=== PATIENT | male | born 1940 | race Caucasian/White ===

== ENCOUNTER 2018-10-29 11:35 | Inpatient (IN) ==
[2018-10-29] MEDS ORDERED: ASPIRIN 325 MG TABLET PO STA (12:14)
[2018-10-29 12:26] LABS: Basophils # 0.1 10*3/uL (0.0-0.2); Basophils % 0.6 % (0.0-0.8); Eosinophils # 0.1 10*3/uL (0.0-0.87); Eosinophils % 1.4 % (0.00-10.9); Hematocrit 47.5 VOL% (42.0-52.0); Hemoglobin 15.1 GM/DL (14.0-18.0); Immature Granulocytes % 0.8 %; Immature Granulocytes Absolute 0.07 #; Lymphocytes # 1.2 10*3/uL (1.4-4.0); Mean Corpuscular HGB Conc 31.8 GM/DL (32-36); Mean Corpuscular Volume 97.9 FL (87-102); Mean Platelet Volume 10.3 FL (9.6-12.0); Monocytes % 5.4 % (1.7-12.7); Neutrophils % 78.8 % (38.7-73.9); Platelet Count 216 T/CUMM (130-400); Red Blood Count 4.85 MC/CUMM (3.8-5.5); Red Cell Distribution Width 13.6 % (9.3-17.3); White Blood Count 9.3 T/CUMM (4-12)
[2018-10-29 12:32] LABS: INR 1.7; PT Patient Result 18.8 SECS
[2018-10-29 12:47] LABS: Calcium 10.2 MG/DL (8.5-10.1); Osmolality,Calculated 288.1 MOS/KG (273-304)
[2018-10-29] MEDS ORDERED: ENOXAPARIN 100 MG/ML SYRINGE SUBCUT STA ×2 (13:08→13:24)
[2018-10-29] MEDS ORDERED: ENOXAPARIN 100 MG/ML SYRINGE SUBCUT ONE (13:26)
[2018-10-29] MEDS ORDERED: ONDANSETRON 4 MG/2 ML VIAL IV PRN (14:08)
[2018-10-29] MEDS ORDERED: ZALEPLON 5 MG CAPSULE PO PRN (14:08)
[2018-10-29] MEDS ORDERED: ACETAMINOPHEN 325 MG TABLET PO PRN (14:08)
[2018-10-29] MEDS ORDERED: CLOPIDOGREL 300 MG TABLET PO ONE (14:13)
[2018-10-29] MEDS ORDERED: NITROGLYCERIN SL 0.4 MG TABLET SL PRN (14:14)
[2018-10-29] MEDS ORDERED: ENOXAPARIN 100 MG/ML SYRINGE SUBCUT SCH (14:30)
[2018-10-29] MEDS ORDERED: SODIUM CHLORIDE 0.9% 1,000 ML IV SCH (14:30)
[2018-10-29 16:18] LABS: Apearance,Urine CLEAR (Clear); Bilirubin,Urine Negative (Negative); Blood, Urine Small mg/dL (Negative); Glucose,Urine (UA) Negative (Negative); Hyaline Casts,Urine 3 /LPF (0-3); Ketones,Urine Negative (Negative); Mucus,Urine Occasional /LPF (Occasional); Nitrite,Urine Negative (Negative); Protein,Urine Negative; RBC,Urine <1 /HPF (0-4); Urine Color Straw (Yellow); Urine Urobilinogen < 2.0 EU/DL (0.2-1.0)
[2018-10-29] MEDS ORDERED: DIAZEPAM 5 MG TABLET PO ONE (17:19)
[2018-10-29] MEDS ORDERED: diphenhydrAMINE CAP 25 MG CAPSULE PO ONE (17:19)
[2018-10-29] MEDS ORDERED: LIDOCAINE 1% 20 ML VIAL ONE (18:47)
[2018-10-29] MEDS ORDERED: NITROGLYCERIN DRIP 50 MG/250 ML BOTTLE IV ONE (18:47)
[2018-10-29] MEDS ORDERED: HEPARIN/NACL 0.9% 2 UNITS/ML 1,000 ML IV ONE (18:47)
[2018-10-29] MEDS ORDERED: VERAPAMIL 5 MG/2 ML VIAL ONE (18:47)
[2018-10-29] MEDS ORDERED: MIDAZOLAM 2 MG/2 ML VIAL ONE (19:16)
[2018-10-29] MEDS ORDERED: fentaNYL 100 MCG/2 ML VIAL ONE (19:16)
[2018-10-29] MEDS ORDERED: ENOXAPARIN 60 MG/0.6 ML SYRINGE ONE (19:31)
[2018-10-29] MEDS ORDERED: HEPARIN/NACL 0.9% 2 UNITS/ML 500 ML IV ONE (20:15)
[2018-10-29] MEDS ORDERED: hydrALAZINE 20 MG/1 ML VIAL ONE (20:55)
[2018-10-29] MEDS ORDERED: TICAGRELOR 90 MG TABLET ONE (20:58)
[2018-10-29] MEDS: GABAPENTIN 300 MG CAPSULE PO SCH (22:35)
[2018-10-29] MEDS: ALLOPURINOL 100 MG TABLET PO SCH (22:36)
[2018-10-29] MEDS: LISINOPRIL 10 MG TABLET PO SCH (22:36)
[2018-10-29] MEDS: ATORVASTATIN 80 MG TABLET PO SCH (22:36)
[2018-10-30 05:05] LABS: Basophils # 0.1 10*3/uL (0.0-0.2); Basophils % 0.8 % (0.0-0.8); Eosinophils # 0.1 10*3/uL (0.0-0.87); Eosinophils % 0.7 % (0.00-10.9); Hematocrit 50.2 VOL% (42.0-52.0); Hemoglobin 15.5 GM/DL (14.0-18.0); Immature Granulocytes % 0.7 %; Immature Granulocytes Absolute 0.07 #; Lymphocytes # 1.3 10*3/uL (1.4-4.0); Lymphocytes % 13.3 % (21.2-54.2); Mean Corpuscular HGB Conc 30.9 GM/DL (32-36); Mean Platelet Volume 10.7 FL (9.6-12.0); Monocytes % 6.3 % (1.7-12.7); Neutrophils % 78.2 % (38.7-73.9); Platelet Count 195 T/CUMM (130-400); Red Blood Count 4.97 MC/CUMM (3.8-5.5); Red Cell Distribution Width 13.9 % (9.3-17.3); White Blood Count 9.8 T/CUMM (4-12)
[2018-10-30 05:21] LABS: Osmolality,Calculated 281.4 MOS/KG (273-304); Risk Ratio 5.69
[2018-10-30] MEDS: VITAMIN E 400 UNIT CAPSULE PO SCH (08:26)
[2018-10-30] MEDS: CYANOCOBALAMIN 500 MCG TABLET PO SCH (08:26)
[2018-10-30] MEDS: ALLOPURINOL 100 MG TABLET PO SCH ×2 (08:26→20:58)
[2018-10-30] MEDS: CARVEDILOL 6.25 MG TABLET PO SCH ×2 (08:26→20:58)
[2018-10-30] MEDS: CHOLECALCIFEROL 1,000 UNIT TABLET PO SCH (08:26)
[2018-10-30] MEDS: ASPIRIN EC 81 MG TABLET PO SCH (08:27)
[2018-10-30] MEDS: GABAPENTIN 300 MG CAPSULE PO SCH ×2 (08:27→20:59)
[2018-10-30] MEDS: PANTOPRAZOLE 40 MG TABLET PO SCH (08:27)
[2018-10-30] MEDS ORDERED: CLOPIDOGREL 75 MG TABLET PO SCH (09:00)
[2018-10-30] MEDS ORDERED: NON-FORMULARY MEDICATION (Omeprazole 20 MG) PO SCH (09:00)
[2018-10-30] MEDS ORDERED: DILTIAZEM CD 240 MG CAPSULE PO SCH (09:00)
[2018-10-30] MEDS: TICAGRELOR 90 MG TABLET PO SCH ×4 (12:25→21:04)
[2018-10-30] MEDS ORDERED: WARFARIN 5 MG TABLET PO SCH (18:00)
[2018-10-30] MEDS: LISINOPRIL 10 MG TABLET PO SCH (20:58)
[2018-10-30] MEDS: ATORVASTATIN 80 MG TABLET PO SCH (20:58)
[2018-10-31 05:22] LABS: Basophils # 0.1 10*3/uL (0.0-0.2); Basophils % 0.7 % (0.0-0.8); Eosinophils # 0.2 10*3/uL (0.0-0.87); Eosinophils % 2.3 % (0.00-10.9); Hematocrit 42.7 VOL% (42.0-52.0); Hemoglobin 14.1 GM/DL (14.0-18.0); Immature Granulocytes % 0.6 %; Immature Granulocytes Absolute 0.05 #; Lymphocytes # 1.5 10*3/uL (1.4-4.0); Lymphocytes % 17.8 % (21.2-54.2); Mean Corpuscular Volume 96.2 FL (87-102); Mean Platelet Volume 10.6 FL (9.6-12.0); Neutrophils % 67.6 % (38.7-73.9); Platelet Count 200 T/CUMM (130-400); Red Blood Count 4.44 MC/CUMM (3.8-5.5); Red Cell Distribution Width 13.7 % (9.3-17.3); White Blood Count 8.3 T/CUMM (4-12)
[2018-10-31 05:25] LABS: INR 1.7; PT Patient Result 18.1 SECS
[2018-10-31 05:51] LABS: Calcium 10.4 MG/DL (8.5-10.1); Osmolality,Calculated 283.3 MOS/KG (273-304)
[2018-10-31] MEDS: CHOLECALCIFEROL 1,000 UNIT TABLET PO SCH (08:46)
[2018-10-31] MEDS: PANTOPRAZOLE 40 MG TABLET PO SCH (08:47)
[2018-10-31] MEDS: CARVEDILOL 6.25 MG TABLET PO SCH (08:47)
[2018-10-31] MEDS: VITAMIN E 400 UNIT CAPSULE PO SCH (08:47)
[2018-10-31] MEDS: GABAPENTIN 300 MG CAPSULE PO SCH (08:47)
[2018-10-31] MEDS: CYANOCOBALAMIN 500 MCG TABLET PO SCH (08:47)
[2018-10-31] MEDS: ALLOPURINOL 100 MG TABLET PO SCH (08:48)
[2018-10-31] MEDS: ASPIRIN EC 81 MG TABLET PO SCH (08:48)
[2018-10-31] MEDS: TICAGRELOR 90 MG TABLET PO SCH ×2 (08:48→08:49)
[2018-10-31 12:29] VITALS: BP 124/70
[2018-10-31] MEDS ORDERED: WARFARIN 2.5 MG TABLET PO SCH (18:00)
== END 2018-10-31 13:11 | disposition home or self-care (01) | DRG 247 ==
LOC: N.ED 11:35 → N.EDINP 14:08 → N.TELES 14:53 → N.CC 21:17 → N.TELEN 10-30 14:14
PROVIDERS: ADMIT Internal Medicine Cardiovascular Disease; ATTEND Internal Medicine Cardiovascular Disease
PROC: CLCCHCL (ICD-10-PCS; 2018-10-29 19:15)

== ENCOUNTER 2019-07-10 12:32 | Observation (INO) ==
[2019-07-10] MEDS ORDERED: ENOXAPARIN 80 MG/0.8 ML SYRINGE SUBCUT STA (13:55)
[2019-07-10] MEDS ORDERED: ASPIRIN 325 MG TABLET PO STA (13:56)
[2019-07-10] MEDS ORDERED: ENOXAPARIN 100 MG/ML SYRINGE SUBCUT ONE (14:02)
[2019-07-10 14:12] LABS: Basophils # 0.1 10*3/uL (0.0-0.2); Eosinophils # 0.3 10*3/uL (0.0-0.87); Eosinophils % 4.7 % (0.00-10.9); Hematocrit 50.7 VOL% (42.0-52.0); Hemoglobin 16.6 GM/DL (14.0-18.0); Immature Granulocytes % 0.4 %; Immature Granulocytes Absolute 0.03 #; Lymphocytes # 1.8 10*3/uL (1.4-4.0); Lymphocytes % 26.5 % (21.2-54.2); Mean Corpuscular HGB Conc 32.7 GM/DL (32-36); Mean Corpuscular Volume 96.8 FL (87-102); Monocytes % 8.9 % (1.7-12.7); Neutrophils % 58.5 % (38.7-73.9); Platelet Count 212 T/CUMM (130-400); Red Blood Count 5.24 MC/CUMM (3.8-5.5); Red Cell Distribution Width 13.9 % (9.3-17.3); White Blood Count 6.8 T/CUMM (4-12)
[2019-07-10 14:25] LABS: Albumin 3.6 G/DL (3.4-5.0); Bilirubin,Total 0.5 MG/DL (0.2-1.0); Osmolality,Calculated 279.4 MOS/KG (273-304); Total Protein 7.5 G/DL (6.4-8.3)
[2019-07-10] MEDS ORDERED: ACETAMINOPHEN 325 MG TABLET PO PRN (16:35)
[2019-07-10] MEDS ORDERED: LACTULOSE 20 GM/30 ML UDCUP PO PRN (16:35)
[2019-07-10] MEDS ORDERED: KETOROLAC 30 MG/1 ML VIAL IV PRN (16:50)
[2019-07-10] MEDS ORDERED: MORPHINE 4 MG/1 ML VIAL IV PRN (16:51)
[2019-07-10 17:05] LABS: INR 2.2
[2019-07-10 17:08] LABS: PT Patient Result 23.4 SECS (9.6-12.2)
[2019-07-10 17:22] LABS: Risk Ratio 5.4; Thyroid Stimulating Hormone 3.92 uIU/ml (0.358-3.74); VLDL CHOLESTEROL 39.2 MG/DL
[2019-07-10 20:53] LABS: Apearance,Urine CLEAR (Clear); Bilirubin,Urine Negative (Negative); Blood, Urine Small mg/dL (Negative); Glucose,Urine (UA) Negative (Negative); Ketones,Urine Negative (Negative); Mucus,Urine Occasional /LPF (Occasional); Nitrite,Urine Negative (Negative); Protein,Urine Negative; RBC,Urine 1 /HPF (0-4); Urine Color Straw (Yellow); Urine Urobilinogen < 2.0 EU/DL (0.2-1.0)
[2019-07-11 05:29] LABS: Basophils # 0.1 10*3/uL (0.0-0.2); Basophils % 1.2 % (0.0-0.8); Eosinophils # 0.3 10*3/uL (0.0-0.87); Eosinophils % 5.3 % (0.00-10.9); Hematocrit 45.3 VOL% (42.0-52.0); Hemoglobin 14.8 GM/DL (14.0-18.0); Immature Granulocytes % 0.3 %; Immature Granulocytes Absolute 0.02 #; Lymphocytes # 1.7 10*3/uL (1.4-4.0); Lymphocytes % 29.2 % (21.2-54.2); Mean Corpuscular HGB Conc 32.7 GM/DL (32-36); Mean Corpuscular Volume 96.6 FL (87-102); Mean Platelet Volume 10.2 FL (9.6-12.0); Monocytes % 8.5 % (1.7-12.7); Neutrophils % 55.5 % (38.7-73.9); Platelet Count 175 T/CUMM (130-400); Red Blood Count 4.69 MC/CUMM (3.8-5.5); Red Cell Distribution Width 13.8 % (9.3-17.3); White Blood Count 5.9 T/CUMM (4-12)
[2019-07-11 05:35] LABS: INR 2.6; PT Patient Result 27.7 SECS (9.6-12.2)
[2019-07-11 05:49] LABS: Calcium 9.6 MG/DL (8.5-10.1); Osmolality,Calculated 282.3 MOS/KG (273-304)
[2019-07-11] MEDS ORDERED: PANTOPRAZOLE 40 MG TABLET PO SCH (09:00)
[2019-07-11 11:12] VITALS: BP 142/71
[2019-07-11] MEDS ORDERED: NITROGLYCERIN SL 0.4 MG TABLET SL PRN (11:19)
[2019-07-11] MEDS ORDERED: WARFARIN 5 MG TABLET PO SCH (18:00)
[2019-07-11] MEDS ORDERED: lisinopriL 20 MG TABLET PO SCH (21:00)
[2019-07-11] MEDS ORDERED: carvediloL 6.25 MG TABLET PO SCH (21:00)
[2019-07-12] MEDS ORDERED: FUROSEMIDE 20 MG TABLET PO SCH (09:00)
[2019-07-12] MEDS ORDERED: CLOPIDOGREL 75 MG TABLET PO SCH (09:00)
[2019-07-12] MEDS ORDERED: WARFARIN 2.5 MG TABLET PO SCH (18:00)
== END 2019-07-11 13:25 | disposition home or self-care (01) ==
LOC: N.EDINP 12:32 → N.ED 12:32 → N.EDINP 18:02 → N.TELEN 18:08
PROVIDERS: ADMIT Internal Medicine; ATTEND Internal Medicine

== ENCOUNTER 2019-08-02 10:54 | Inpatient (IN) ==
[~2019-08-02 10:54] MED LIST: ASPIRIN 325 MG TABLET PO ONE; DEXTROSE 5% NACL 0.45% 1,000 ML IV SCH; DIAZEPAM 5 MG TABLET PO ONE; MAGNESIUM SULF RIDER 2 GM in PREMIX 1 EACH IV PRN; POTASSIUM CHLORIDE RIDER 10 MEQ in PREMIX 1 EACH IV PRN; diphenhydrAMINE CAP 25 MG CAPSULE PO ONE
[2019-08-02] MEDS ORDERED: diphenhydrAMINE CAP 25 MG CAPSULE ONE (11:52)
[2019-08-02] MEDS ORDERED: ASPIRIN 325 MG TABLET ONE (11:52)
[2019-08-02] MEDS ORDERED: DIAZEPAM 5 MG TABLET ONE (11:52)
[2019-08-02 12:33] LABS: INR 1.4; PT Patient Result 15.4 SECS (9.6-12.2)
[2019-08-02] MEDS ORDERED: HEPARIN/NACL 0.9% 2 UNITS/ML 1,000 ML IV ONE (13:00)
[2019-08-02] MEDS ORDERED: LIDOCAINE 1%/EPI INJ 20 ML VIAL ONE (13:00)
[2019-08-02] MEDS ORDERED: fentaNYL 100 MCG/2 ML VIAL ONE (13:11)
[2019-08-02] MEDS ORDERED: MIDAZOLAM 2 MG/2 ML VIAL ONE (13:11)
[2019-08-02] MEDS ORDERED: ENOXAPARIN 60 MG/0.6 ML SYRINGE ONE (13:38)
[2019-08-02] MEDS ORDERED: TIROFIBAN 5,000 MCG/100 ML PREMIX IV ONE (13:49)
[2019-08-02] MEDS ORDERED: CLOPIDOGREL 300 MG TABLET ONE (14:12)
[2019-08-02] MEDS ORDERED: NITROGLYCERIN SL 0.4 MG TABLET SL PRN (14:33)
[2019-08-02] MEDS ORDERED: fentaNYL 100 MCG/2 ML VIAL IV PRN (14:35)
[2019-08-02] MEDS: ACETAMINOPHEN 325 MG TABLET PO PRN ×2 (15:57→19:50)
[2019-08-02] MEDS: GABAPENTIN 300 MG CAPSULE PO SCH (20:19)
[2019-08-02] MEDS: allopurinoL 100 MG TABLET PO SCH (20:19)
[2019-08-02] MEDS: carvediloL 6.25 MG TABLET PO SCH (20:19)
[2019-08-02] MEDS ORDERED: lisinopriL 20 MG TABLET PO SCH (21:00)
[2019-08-02] MEDS ORDERED: ATORVASTATIN 80 MG TABLET PO SCH (21:00)
[2019-08-03 05:13] LABS: Basophils # 0.1 10*3/uL (0.0-0.2); Basophils % 0.9 % (0.0-0.8); Eosinophils # 0.3 10*3/uL (0.0-0.87); Eosinophils % 3.9 % (0.00-10.9); Hematocrit 42.4 VOL% (42.0-52.0); Immature Granulocytes % 0.4 %; Immature Granulocytes Absolute 0.03 #; Lymphocytes # 1.6 10*3/uL (1.4-4.0); Lymphocytes % 21.4 % (21.2-54.2); Mean Corpuscular Volume 95.5 FL (87-102); Mean Platelet Volume 10.2 FL (9.6-12.0); Monocytes % 8.4 % (1.7-12.7); Platelet Count 173 T/CUMM (130-400); Red Blood Count 4.44 MC/CUMM (3.8-5.5); Red Cell Distribution Width 13.9 % (9.3-17.3); White Blood Count 7.6 T/CUMM (4-12)
[2019-08-03 05:39] LABS: Calcium 9.7 MG/DL (8.5-10.1); Osmolality,Calculated 277.5 MOS/KG (273-304)
[2019-08-03] MEDS: carvediloL 6.25 MG TABLET PO SCH (08:09)
[2019-08-03] MEDS: GABAPENTIN 300 MG CAPSULE PO SCH (08:09)
[2019-08-03] MEDS: allopurinoL 100 MG TABLET PO SCH (08:09)
[2019-08-03 08:16] VITALS: BP 125/65
[2019-08-03] MEDS ORDERED: FUROSEMIDE 20 MG TABLET PO SCH (09:00)
[2019-08-03] MEDS ORDERED: CYANOCOBALAMIN 500 MCG TABLET PO SCH (09:00)
[2019-08-03] MEDS ORDERED: CHOLECALCIFEROL 1,000 UNIT TABLET PO SCH (09:00)
[2019-08-03] MEDS ORDERED: ASPIRIN EC 81 MG TABLET PO SCH (09:00)
[2019-08-03] MEDS ORDERED: VITAMIN E 400 UNIT CAPSULE PO SCH (09:00)
[2019-08-03] MEDS ORDERED: CLOPIDOGREL 75 MG TABLET PO SCH (09:00)
== END 2019-08-03 09:31 | disposition home or self-care (01) | DRG 247 ==
LOC: N.CL 10:54 → N.TELEN 13:13
PROVIDERS: ADMIT Internal Medicine Interventional Cardiology; ATTEND Internal Medicine Interventional Cardiology
PROC: CLCCHCL (ICD-10-PCS; 2019-08-02 14:45)

== ENCOUNTER 2021-04-07 15:15 | Inpatient (IN) ==
[2021-04-07] MEDS ORDERED: INFLUENZA VIRUS VACCINE 0.5 ML SYRINGE IM ONE (20:07)
[2021-04-07 21:07] LABS: Basophils % 0.2 % (0.0-0.8); Hematocrit 40.4 VOL% (42.0-52.0); Hemoglobin 13.4 GM/DL (14.0-18.0); Immature Granulocytes % 1.1 %; Lymphocytes # 0.7 10*3/uL (1.4-4.0); Lymphocytes % 3.7 % (21.2-54.2); Mean Corpuscular HGB Conc 33.2 GM/DL (32-36); Mean Corpuscular Volume 97.1 FL (87-102); Mean Platelet Volume 9.8 FL (9.6-12.0); Monocytes % 5.3 % (1.7-12.7); Neutrophils % 89.7 % (38.7-73.9); Platelet Count 165 T/CUMM (130-400); Red Blood Count 4.16 MC/CUMM (3.8-5.5); Red Cell Distribution Width 14.7 % (9.3-17.3); White Blood Count 18.7 T/CUMM (4-12)
[2021-04-07 21:21] LABS: INR 3.2
[2021-04-07 21:23] LABS: PT Patient Result 32.9 SECS (10.5-12.0)
[2021-04-07 21:24] LABS: Albumin 3.1 G/DL (3.4-5.0); Bilirubin,Total 3.9 MG/DL (0.20-1.00); Calcium 10.4 MG/DL (8.5-10.1); Osmolality,Calculated 292.8 MOS/KG (273-304); Potassium 3.6 MMOL/L (3.5-5.1); Total Protein 6.4 G/DL (6.4-8.2)
[2021-04-07] MEDS ORDERED: hydrALAZINE 20 MG/1 ML VIAL IV PRN (21:40)
[2021-04-07] MEDS ORDERED: DEXTROSE 50% 25 GM/50 ML VIAL IV PRN (21:40)
[2021-04-07] MEDS ORDERED: HYDROmorphone 2 MG/1 ML VIAL IV PRN (21:40)
[2021-04-07] MEDS ORDERED: GLUCAGON 1 MG VIAL IM PRN (21:40)
[2021-04-07] MEDS ORDERED: cefTRIAXone 1,000 MG in SODIUM CHLORIDE 0.9% 100 ML IV SCH (22:00)
[2021-04-07] MEDS ORDERED: metroNIDAZOLE INJ 500 MG/100 ML PREMIX IV SCH (22:00)
[2021-04-07 22:22] LABS: Hepatitis B Core IgM Quant 0.07 Index; Hepatitis B Surface Ag Quant < 0.10 Index; Hepatitis B Surface Ag Result Non-Reactive (NonReactive); Hepatitis C Virus Ab Quant 0.09 Index; Hepatitis C Virus Ab Result Non-Reactive (NonReactive)
[2021-04-07] MEDS: PIPERACILLIN/TAZOBACTAM 3,375 MG in SODIUM CHLORIDE 0.9% 100 ML IV SCH (22:31)
[2021-04-07] MEDS: LACTATED RINGERS 1,000 ML IV SCH (22:33)
[2021-04-08 01:30] LABS: Basophils # 0.1 10*3/uL (0.0-0.2); Basophils % 0.2 % (0.0-0.8); Hematocrit 39.2 VOL% (42.0-52.0); Hemoglobin 12.6 GM/DL (14.0-18.0); Immature Granulocytes % 1.1 %; Immature Granulocytes Absolute 0.23 #; Lymphocytes # 0.9 10*3/uL (1.4-4.0); Lymphocytes % 4.1 % (21.2-54.2); Mean Corpuscular HGB Conc 32.1 GM/DL (32-36); Mean Corpuscular Volume 98.2 FL (87-102); Mean Platelet Volume 10.1 FL (9.6-12.0); Neutrophils % 89.6 % (38.7-73.9); Platelet Count 165 T/CUMM (130-400); Red Blood Count 3.99 MC/CUMM (3.8-5.5); Red Cell Distribution Width 14.7 % (9.3-17.3); White Blood Count 21.4 T/CUMM (4-12)
[2021-04-08] MEDS ORDERED: NITROGLYCERIN SL 0.4 MG TABLET SL PRN (01:36)
[2021-04-08] MEDS ORDERED: ONDANSETRON 4 MG/2 ML VIAL IV PRN (01:39)
[2021-04-08 01:58] LABS: Band Neutrophils 2 % (0-10); Lymphocytes 4 % (20-55); Segmented Neutrophils 90 % (50-85); Total Cells Counted 100
[2021-04-08 01:59] LABS: Platelet Estimate Normal
[2021-04-08 02:02] LABS: Bilirubin,Total 4.2 MG/DL (0.20-1.00); Calcium 10.2 MG/DL (8.5-10.1); Osmolality,Calculated 291.1 MOS/KG (273-304); Total Protein 6.3 G/DL (6.4-8.2)
[2021-04-08] MEDS: PIPERACILLIN/TAZOBACTAM 3,375 MG in SODIUM CHLORIDE 0.9% 100 ML IV SCH ×2 (05:50→17:51)
[2021-04-08] MEDS: PANTOPRAZOLE 40 MG VIAL IV SCH (12:57)
[2021-04-08] MEDS: GABAPENTIN 300 MG CAPSULE PO SCH ×2 (13:18→20:48)
[2021-04-08] MEDS: CHOLECALCIFEROL 5,000 UNIT TABLET PO SCH (13:18)
[2021-04-08] MEDS: carvediloL 6.25 MG TABLET PO SCH ×2 (13:18→20:48)
[2021-04-08] MEDS: allopurinoL 100 MG TABLET PO SCH ×2 (13:18→20:48)
[2021-04-08] MEDS: LACTATED RINGERS 1,000 ML IV SCH ×2 (13:20→23:42)
[2021-04-08 14:35] LABS: INR 4.2
[2021-04-08 14:40] LABS: PT Patient Result 41.9 SECS (10.5-12.0)
[2021-04-08] MEDS: ISOSORBIDE MONONITRATE 30 MG TABLET PO SCH (20:48)
[2021-04-09] MEDS: PIPERACILLIN/TAZOBACTAM 3,375 MG in SODIUM CHLORIDE 0.9% 100 ML IV SCH ×3 (02:10→16:49)
[2021-04-09 05:18] LABS: Basophils % 0.3 % (0.0-0.8); Eosinophils # 0.2 10*3/uL (0.0-0.87); Eosinophils % 1.5 % (0.00-10.9); Hematocrit 36.1 VOL% (42.0-52.0); Hemoglobin 11.5 GM/DL (14.0-18.0); Immature Granulocytes % 0.9 %; Immature Granulocytes Absolute 0.11 #; Lymphocytes # 0.9 10*3/uL (1.4-4.0); Lymphocytes % 7.6 % (21.2-54.2); Mean Corpuscular HGB Conc 31.9 GM/DL (32-36); Mean Corpuscular Volume 99.7 FL (87-102); Mean Platelet Volume 10.8 FL (9.6-12.0); Monocytes % 5.9 % (1.7-12.7); Neutrophils % 83.8 % (38.7-73.9); Platelet Count 143 T/CUMM (130-400); Red Blood Count 3.62 MC/CUMM (3.8-5.5); Red Cell Distribution Width 14.9 % (9.3-17.3); White Blood Count 12.4 T/CUMM (4-12)
[2021-04-09 05:21] LABS: INR 3.6
[2021-04-09 05:26] LABS: PT Patient Result 36.5 SECS (10.5-12.0)
[2021-04-09 05:53] LABS: Albumin 2.6 G/DL (3.4-5.0); Bilirubin,Total 2.6 MG/DL (0.20-1.00); Osmolality,Calculated 289.1 MOS/KG (273-304); Potassium 4.4 MMOL/L (3.5-5.1); Total Protein 5.8 G/DL (6.4-8.2)
[2021-04-09] MEDS: carvediloL 6.25 MG TABLET PO SCH ×2 (08:30→20:04)
[2021-04-09] MEDS: CHOLECALCIFEROL 5,000 UNIT TABLET PO SCH (08:30)
[2021-04-09] MEDS: PANTOPRAZOLE 40 MG VIAL IV SCH (08:30)
[2021-04-09] MEDS: GABAPENTIN 300 MG CAPSULE PO SCH ×2 (08:30→20:04)
[2021-04-09] MEDS: allopurinoL 100 MG TABLET PO SCH ×2 (08:30→20:05)
[2021-04-09] MEDS: ACETAMINOPHEN 325 MG TABLET PO PRN ×2 (12:10→20:04)
[2021-04-09] MEDS: ASPIRIN EC 81 MG TABLET PO SCH (12:11)
[2021-04-09] MEDS: ISOSORBIDE MONONITRATE 30 MG TABLET PO SCH (20:05)
[2021-04-09] MEDS: LACTATED RINGERS 1,000 ML IV SCH (22:00)
[2021-04-10] MEDS: PIPERACILLIN/TAZOBACTAM 3,375 MG in SODIUM CHLORIDE 0.9% 100 ML IV SCH ×2 (00:14→09:27)
[2021-04-10 05:00] LABS: Basophils % 0.5 % (0.0-0.8); Eosinophils # 0.3 10*3/uL (0.0-0.87); Eosinophils % 3.3 % (0.00-10.9); Hematocrit 36.6 VOL% (42.0-52.0); Hemoglobin 11.7 GM/DL (14.0-18.0); Immature Granulocytes % 0.9 %; Immature Granulocytes Absolute 0.07 #; Lymphocytes % 12.6 % (21.2-54.2); Mean Corpuscular Volume 98.1 FL (87-102); Mean Platelet Volume 10.8 FL (9.6-12.0); Monocytes % 6.5 % (1.7-12.7); Neutrophils % 76.2 % (38.7-73.9); Platelet Count 144 T/CUMM (130-400); Red Blood Count 3.73 MC/CUMM (3.8-5.5); Red Cell Distribution Width 14.7 % (9.3-17.3); White Blood Count 7.9 T/CUMM (4-12)
[2021-04-10 05:30] LABS: Albumin 2.3 G/DL (3.4-5.0); Bilirubin,Total 2.3 MG/DL (0.20-1.00); Calcium 10.1 MG/DL (8.5-10.1); Potassium 4.2 MMOL/L (3.5-5.1); Total Protein 5.7 G/DL (6.4-8.2)
[2021-04-10] MEDS: LACTATED RINGERS 1,000 ML IV SCH ×3 (06:50→10:17)
[2021-04-10] MEDS: carvediloL 6.25 MG TABLET PO SCH (09:26)
[2021-04-10] MEDS: GABAPENTIN 300 MG CAPSULE PO SCH (09:26)
[2021-04-10] MEDS: allopurinoL 100 MG TABLET PO SCH (09:26)
[2021-04-10] MEDS: ASPIRIN EC 81 MG TABLET PO SCH (09:26)
[2021-04-10] MEDS: PANTOPRAZOLE 40 MG VIAL IV SCH (09:27)
[2021-04-10] MEDS: CHOLECALCIFEROL 5,000 UNIT TABLET PO SCH (09:32)
[2021-04-10 09:37] LABS: INR 1.5
[2021-04-10 11:46] VITALS: BP 152/71
== END 2021-04-10 13:20 | disposition home or self-care (01) | DRG 445 ==
LOC: N.5E → SUATTDRO 20:16 → OBSVTOIN 20:16
PROVIDERS: ADMIT Internal Medicine; ATTEND Internal Medicine